=== PATIENT | female | born 1960 | race Caucasian/White ===

== ENCOUNTER → 2018-06-13 | Outpatient (CLI) | payer BC | LOC: MC.RAD 11:30 | DX: Z12.31 Encounter for screening mammogram for malignant neoplasm of breast (principal) ==

== ENCOUNTER → 2019-10-26 | Outpatient (CLI) | payer BC | LOC: COL.RAD 13:17 | DX: R79.89 Other specified abnormal findings of blood chemistry (principal); R55 Syncope and collapse | CPT/HCPCS: Q9967 ==

== ENCOUNTER → 2020-07-16 | Outpatient (CLI) | payer BC | LOC: MC.RAD 14:45 | DX: Z12.31 Encounter for screening mammogram for malignant neoplasm of breast (principal) ==

== ENCOUNTER → 2022-06-02 | Outpatient (CLI) | payer BC | LOC: MC.RAD 14:09 | DX: Z12.31 Encounter for screening mammogram for malignant neoplasm of breast (principal) ==